=== PATIENT | male | born 1985 | race American Indian/Alaskan Native ===

== ENCOUNTER 2022-04-08 04:57 | Emergency (ER) | payer BC ==
[2022-04-08] MEDS ORDERED: SODIUM CHLORIDE 0.9% 1000 ML 1,000 ML IV ONE (05:08)
[2022-04-08] MEDS ORDERED: SODIUM CHLORIDE 0.9% 1000 ML 1,000 ML ONE (05:30)
[2022-04-08 05:36] LABS: Basophils # (Auto) 0.1 K/mm3 (0.0-0.1); Basophils % (Auto) 0.7 % (0.0-1.8); Eosinophils # (Auto) 0.2 K/mm3 (0.0-0.4); Eosinophils % (Auto) 1.4 % (0.0-4.3); Hematocrit 43.1 % (35.5-45.6); Lymphocytes # (Auto) 2.8 K/mm3 (1.2-5.4); Lymphocytes % (Auto) 23.2 % (13.4-35.0); Mean Corpuscular HGB Conc 32 % (32-34); Mean Corpuscular Volume 89 fl (84-94); Monocytes # (Auto) 1.1 K/mm3 (0.0-0.8); Monocytes % (Auto) 9.3 % (0.0-7.3); Platelet Count 304 K/mm3 (140-440); Red Blood Count 4.86 M/mm3 (3.65-5.03)
[2022-04-08 05:46] LABS: INR 0.83 (0.87-1.13)
--- NOTE | 2022-04-08 05:50 | XRay Report ---
XR chest 1V ap INDICATION / CLINICAL INFORMATION: Chest Pain. COMPARISON: None available. FINDINGS: SUPPORT DEVICES: None. HEART /PULMONARY VASCULATURE: No significant abnormality. LUNGS / PLEURA: Shallow inspiration. No acute pulmonary or pleural abnormality. No pneumothorax. ADDITIONAL FINDINGS: No significant additional findings. IMPRESSION: 1. No acute findings. Signer Name: Miguelito Aguero MD Signed: 04/08/2022 5:45 AM Workstation Name: [id number]
[2022-04-08 05:59] LABS: Alanine Aminotransferase 37 units/L (7-56); Albumin 4.6 g/dL (3.9-5); BUN/Creatinine Ratio 10; Blood Urea Nitrogen 13 mg/dL (9-20); Calcium 9.1 mg/dL (8.4-10.2); Hemolysis Index 37
[2022-04-08] MEDS ORDERED: KETOROLAC 30 MG/1 ML INJ IV ONE (06:12)
--- NOTE | 2022-04-08 06:17 | Emergency Department Report ---
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 left arm numbness and hand pain and some chest discomfort, he took 5 asprin and called ambulance gave him nitro and brought in here MD Complaint: chest pain -: hour(s) Onset: during rest Pain Location: left chest Severity: mild Quality: other Consistency: intermittent Improves With: nothing - Related Data Allergies Allergy/AdvReac Type Severity Reaction Status Date / Time No Known Allergies Allergy Verified 04/08/22 05:30 Heart Score - HEART Score History: Slightly suspicious EKG: Normal Age: < 45 Risk factors: 1-2 risk factors Troponin: < normal limit HEART Score: 1 - EKG Read Time Time EKG Completed: 05:01 EKG Read Time: 05:01 - Critical Actions Critical Actions: 0-3 pts:0.9-1.7%risk of adverse cardiac event.Candidate for discharge ED Review of Systems ROS: Stated complaint: CHEST PAIN Other details as noted in HPI Constitutional: denies: chills, fever Eyes: denies: eye pain, eye discharge, vision change ENT: denies: ear pain, throat pain Respiratory: denies: cough, shortness of breath, wheezing Cardiovascular: denies: chest pain, palpitations Endocrine: no symptoms reported Gastrointestinal: denies: abdominal pain, nausea, diarrhea Genitourinary: denies: urgency, dysuria Musculoskeletal: denies: back pain, joint swelling, arthralgia Skin: denies: rash, lesions Neurological: denies: headache, weakness, paresthesias Psychiatric: denies: anxiety, depression Hematological/Lymphatic: denies: easy bleeding, easy bruising ED Physical Exam - General Limitations: No Limitations ED Medical Decision Making - Lab Data Result diagrams: 04/08/22 05:21 04/08/22 05:21 - EKG Data -: EKG Interpreted by Me EKG shows normal: sinus rhythm Rate: normal - EKG Data Interpretation: no acute changes - Radiology Data Radiology results: report reviewed, image reviewed - Medical Decision Making work up negative , trop negatve low risk ekg normal , pain seems cervical radicolpathy Critical care attestation.: If time is entered above; I have spent that time in minutes in the direct care of this critically ill patient, excluding procedure time. ED Disposition Clinical Impression: Chest pain, Cervical radiculopathy Disposition: 01 HOME / SELF CARE / HOMELESS Is pt being admited?: No Does the pt Need Aspirin: No Condition: Stable Instructions: Nonspecific Chest Pain, Adult, Radicular Pain
[2022-04-08 06:56] VITALS: BP 143/83
--- NOTE | 2022-04-10 18:09 | Electrocardiograph Report ---
[facility] Test Date: 2022-04-08 Test Time: 05:01:37 Pat Name: FLO JONES Department: Room: Gender: M Weight Loss Consultant: LUNA : 1985 Requested By: DIONISIO JOHNSON Order Number: [id number] Reading MD: Yadi Ruiz Measurements Intervals P[place]iar Rate: 66 P: 45 IL: 182 QRS: 39 QRSD: 84 T: 35 QT: 377 QTc: 397 Interpretive Statements Sinus rhythm No previous ECG available for comparison Electronically Signed On 04-10-2022 18:08:41 EDT by Yadi Ruiz
== END 2022-04-08 07:15 | disposition home or self-care (01) ==
LOC: ED 04:57
DX: R07.9 Chest pain, unspecified (principal); M54.12 Radiculopathy, cervical region
CPT/HCPCS: 36415; 71045; 80053; 83690; 84484; 85025; 85379; 85610; 93005; 96361; 96374; 99284; J1885; J7030